=== PATIENT | female | born 1960 | race African-American/Black ===

== ENCOUNTER 2017-02-15 00:54 | Emergency (ER) | payer MEDICAID ==
[~2017-02-15] VITALS: Ht 154.9 cm; Wt 95.0 kg
[~2017-02-15 00:54] MED LIST: AMLO5TAB22 PO; DICL1GEL TOPICAL; DILA8TAB4 PO
[2017-02-15 00:56] VITALS: BP 125/73; PULSE 65; RESP 14; TEMP 98; O2SAT 97
--- NOTE | 2017-02-15 02:54 | PD ---
HPI Chief Complaint: Wound/Suture/Staple Re-Check Time Seen by Provider: 02:50 Travel History International Travel<30 days: No Contact w/Intl Traveler<30days: No Traveled to known affect area: No History of Present Illness HPI 56-year-old black female presents to emergency room requesting sutures to be removed from a procedure she had done on the sixth of this month. She states that she saw a surgeon and had a procedure on her neck due to weakness in her upper arms. She states that she does not want to drive back to her surgeons to have the stitches removed. She states that she lives here in [facility] and she had the surgery in another county. She denies any fever or chills. She states that she is moving her arms freely now. No fever chills. No discharge. PFSH Past Medical History Arthritis: Yes Cardiovascular Problems: Yes (HTN) Diminished Hearing: No Gastrointestinal Disorders: Yes (GASTRIC BYPASS) Hypertension: Yes Musculoskeletal: Yes (states chronic back pain from injury ) Immunizations Current: No Menopausal: Yes Ectopic : Yes Tubal Ligation: Yes (TUBAL 86) Past Surgical History Section: Yes Gynecologic Surgery: Yes Other Surgery: Yes (RIGHT WRIST GANGLION ) Social History Alcohol Use: No Tobacco Use: No Substance Use: No Allergies-Medications (Allergen,Severity, Reaction): Coded Allergies: Contrast Media (Unverified Allergy, Intermediate, Itching, 02/15/17) Reported Meds & Prescriptions Reported Meds & Active Scripts Active Voltaren 1% Gel (Diclofenac Sodium (Topical)) 1 % Gel 1 Inch TOPICAL TID Reported Amlodipine Besylate 5 mg (Amlodipine Besylate) 5 Mg Tab 1 Tab PO DAILY Dilaudid 8 mg (Hydromorphone HCl) 8 Mg Tab 8 Mg PO Q6H PRN Review of Systems Except as stated in HPI: all other systems reviewed are Neg Physical Exam Narrative GENERAL: This is a well-nourished, well-developed patient, in no apparent distress. SKIN: No rashes, ecchymoses or lesions. Warm and dry. Patient has 2 stitches to the anterior neck. No signs of infection. HEAD: Atraumatic. Normocephalic. EYES: PERRL, EOMI, no discharge or injection. No scleral icterus. EARS: Clear NOSE: Nasal turbinates appear normal. THROAT: Mucosa pink and moist. Airway patent. NECK: Trachea midline. supple, moves head freely. LUNGS: Clear to auscultation. CV: Regular in rhythm. ABDOMEN: Soft nontender. EXT: No clubbing cyanosis or edema. Data Data Last Documented VS Vital Signs Date Time Temp Pulse Resp B/P Pulse Ox O2 Delivery O2 Flow Rate FiO2 02/15/17 00:56 98.0 65 14 125/73 97 Room Air MDM Medical Decision Making Medical Screen Exam Complete: Yes Emergency Medical Condition: No Medical Record Reviewed: No Differential Diagnosis Differential diagnoses: Healing laceration, wound infection, suture removal Narrative Course Patient's to stitches are removed without incidence. Diagnosis Primary Impression: Visit for suture removal Patient Instructions: General Instructions Additional Instructions: Rest. Daily wound care. Call your surgeon to advise him that you had her sutures removed. Follow-up your doctor this week. Med/Other Pt SpecificInfo: Wound Care Disposition: 01 DISCHARGE HOME Condition: Stable Almas Weiss Feb 15, 2017 02:54
== END 2017-02-15 03:37 | disposition home or self-care (01) ==
LOC: NEPB 00:54
DX: Z48.02 Encounter for removal of sutures (principal)
CPT/HCPCS: 99281

== ENCOUNTER 2018-03-22 01:02 | Emergency (ER) | payer MEDICAID, OTHER ==
[~2018-03-22] VITALS: Ht 154.9 cm; Wt 104.5 kg
[2018-03-22 01:03] VITALS: BP 194/84; PULSE 70; RESP 18; TEMP 98.4; O2SAT 97
[2018-03-22] MEDS ORDERED: HYDR12.57 PO (01:21)
[2018-03-22] MEDS ORDERED: NAPR500T2 PO (01:21)
[2018-03-22] MEDS ORDERED: AMLO5TAB2 PO (01:21)
[2018-03-22] MEDS ORDERED: DILA8TAB4 PO (01:21)
--- NOTE | 2018-03-22 01:21 | PD ---
HPI Chief Complaint: Musculoskeletal Complaint Time Seen by Provider: 01:10 Travel History International Travel<30 days: No Contact w/Intl Traveler<30days: No Traveled to known affect area: No History of Present Illness HPI The patient is a 57-year-old female who presents to the emergency department for right leg pain and swelling. The patient states she fractured her right fibula in January while in [place]. The patient states she slipped on "black ice" and fractured her leg. The patient was being followed by local orthopedic surgeon, Dr. Orlando. The patient was wearing a right lower extremity brace, was being followed by physical therapy, and was advised she could stop wearing the brace. However, over the last several days she has had increasing pain to the right lower extremity with edema. The patient's pain started when she drove to [place] to visit a sick relative in the hospital. She developed some pain behind the right knee and over the right calf. The patient's pain is worse with ambulation and is described as cramping. She denies any history of pulmonary embolism or DVT. She denies any associated chest pain or shortness of breath. Symptoms are moderate. PFSH Past Medical History Arthritis: Yes Cardiovascular Problems: Yes (HTN) Diminished Hearing: No Gastrointestinal Disorders: Yes (GASTRIC BYPASS) Hypertension: Yes Musculoskeletal: Yes (states chronic back pain from injury ) Immunizations Current: No Tetanus Vaccination: > 5 Years Influenza Vaccination: No ?: Not Menopausal: Yes Ectopic : Yes Tubal Ligation: Yes (TUBAL 86) Past Surgical History Section: Yes Gynecologic Surgery: Yes Other Surgery: Yes (RIGHT WRIST GANGLION ) Social History Alcohol Use: No Tobacco Use: No Substance Use: No Allergies-Medications (Allergen,Severity, Reaction): Coded Allergies: diatrizoate meglumine (Unverified Allergy, Intermediate, Itching, 07/10/17) gadobenic acid (Unverified Allergy, Intermediate, Itching, 07/10/17) gadodiamide (Unverified Allergy, Intermediate, Itching, 07/10/17) gadoteridol (Unverified Allergy, Intermediate, Itching, 07/10/17) iodixanol (Unverified Allergy, Intermediate, Itching, 07/10/17) iohexol (Unverified Allergy, Intermediate, Itching, 07/10/17) Reported Meds & Prescriptions Reported Meds & Active Scripts Active Reported Naproxen 500 Mg Tab 500 Mg PO BID Amlodipine (Amlodipine Besylate) 5 Mg Tab 5 Mg PO DAILY Dilaudid (Hydromorphone HCl) 8 Mg Tab 8 Mg PO Q6H PRN Hydrochlorothiazide 12.5 Mg Cap 12.5 Mg PO DAILY Review of Systems Except as stated in HPI: all other systems reviewed are Neg General / Constitutional: No: Fever Cardiovascular: No: Chest Pain or Discomfort Respiratory: No: Shortness of Breath Gastrointestinal: No: Nausea, Vomiting, Abdominal Pain Musculoskeletal: Positive: Edema, Pain Skin: No Rash Neurologic: No: Dizziness, Paresthesia, Sensory Disturbance Physical Exam Narrative GENERAL: Awake, alert, pleasant 57-year-old female who appears her stated age and is in no acute respiratory distress. SKIN: Focused skin assessment warm/dry. HEAD: Atraumatic. Normocephalic. EYES: No injection or drainage. CARDIOVASCULAR: Regular rate and rhythm. No murmur appreciated. RESPIRATORY: No accessory muscle use. Clear to auscultation. Breath sounds equal bilaterally. GASTROINTESTINAL: Abdomen soft, non-tender, nondistended. MUSCULOSKELETAL: No obvious edema to right lower extremity with compared to left. Positive dorsalis pedal pulses. Tenderness over the right calf and right popliteal fossa. No erythema noted. NEUROLOGICAL: Awake and alert. No obvious cranial nerve deficits. Motor grossly within normal limits. Normal speech. Sensation is intact to lower extremities bilaterally to soft touch. PSYCHIATRIC: Appropriate mood and affect; insight and judgment normal. Data Data Last Documented VS Vital Signs Date Time Temp Pulse Resp B/P (MAP) Pulse Ox O2 Delivery O2 Flow Rate FiO2 03/22/18 01:03 98.4 70 18 194/84 (120) 97 Orders Orders Tibia/Fibula (Ap/Lat) (03/22/18 ) Us Leg Venous Doppler (03/22/18 ) MDM Medical Decision Making Medical Screen Exam Complete: Yes Emergency Medical Condition: Yes Medical Record Reviewed: Yes Interpretation(s) Last Impressions Tibia/Fibula X-Ray 03/22/18 0000 Signed Impressions: Service Date/Time: Thursday, March 22, 2018 01:36 - CONCLUSION: Nondisplaced fracture of the proximal fibula. Lincoln Hare MD Lower Extremity Ultrasound 03/22/18 0000 Signed Impressions: Service Date/Time: Thursday, March 22, 2018 01:55 - CONCLUSION: Negative for deep venous thrombosis right lower extremity. Lincoln Hare MD Differential Diagnosis Differential diagnosis includes DVT, Abbasi's cyst, electrolyte abnormality, fracture, dependent edema, muscle strain. Narrative Course X-ray of the right tibia/fibula was obtained and ultrasound of the right lower extremity was ordered to rule out DVT. X-ray of the right tibia/fibula still reveals a nondisplaced fracture of the proximal fibula, most likely this is the patient's previous fracture that has not healed completely. Diagnosis Primary Impression: Right fibular fracture Qualified Codes: S82.831A - Other fracture of upper and lower end of right fibula, initial encounter for closed fracture Patient Instructions: General Instructions Additional Instructions: Continue to wear the walking boot. Follow-up with your orthopedist. Please provide the patient a copy of her ultrasound results and x-ray results at discharge. Elevate and ice as needed. Activity as tolerated. Med/Other Pt SpecificInfo: No Change to Meds Disposition: 01 DISCHARGE HOME Condition: Stable Mirza Agrawal MD Mar 22, 2018 01:21
--- NOTE | 2018-03-22 01:51 | RADRPT ---
EXAM DATE/TIME: 03/22/2018 01:36 [facility] COMPARISON: No previous studies available for comparison. INDICATIONS : Pain due to fall on January 26, 2018. MEDICAL HISTORY : None. SURGICAL HISTORY : None. ENCOUNTER: Initial ACUITY: 1 month PAIN SCORE: 9/10 LOCATION: Right tibia/fibula FINDINGS: There is an oblique fracture through the proximal diametaphysis of the fibula without angulation or d isplacement. The tibia appears intact. Mild soft tissue swelling about the medial lateral aspect of the ankle. Unfused tibial tubercle. The No radiopaque foreign bodies. CONCLUSION: Nondisplaced fracture of the proximal fibula. Lincoln Hare MD on March 22, 2018 at 1:47 Board Certified Radiologist. This report was verified electronically.
--- NOTE | 2018-03-22 02:27 | RADRPT ---
EXAM DATE/TIME: 03/22/2018 01:55 [facility] COMPARISON: No previous studies available for comparison. INDICATIONS : Right leg pain and swelling s/p fractured fibula in January 2018. MEDICAL HISTORY : Hypertension. Arthritis. Ectopic in 1985. SURGICAL HISTORY : Gastric bypass. Carpal tunnel syndrome. Right wrist ganglion cyst removal. ENCOUNTER: Initial ACUITY: 4 - 6 days PAIN SCORE: 3/10 LOCATION: Right leg. TECHNIQUE: Venous ultrasound of the leg was performed from the inguinal ligament to the proximal calf. Real-ezra e, color Doppler and spectral tracing, compression and augmentation techniques were used. FINDINGS: There is normal compressibility of the deep venous system from the inguinal region to the proximal ca lf. No echogenic clot is seen in the lumen of the common femoral, femoral, popliteal, and posterior tibial veins. There is a normal response of the venous system to proximal and distal augmentation an d respiration. CONCLUSION: Negative for deep venous thrombosis right lower extremity. Lincoln Hare MD on March 22, 2018 at 2:24 Board Certified Radiologist. This report was verified electronically.
[2018-03-22 03:29] VITALS: BP 198/84
== END 2018-03-22 03:30 | disposition home or self-care (01) ==
LOC: NEPC 01:02
DX: S82.831A Other fracture of upper and lower end of right fibula, initial encounter for closed fracture (principal); W00.0XXA Fall on same level due to ice and snow, initial encounter
CPT/HCPCS: 73590; 93971; 99284